=== PATIENT | female | born 1955 | race Hispanic/Latino ===

== ENCOUNTER 2019-01-20 18:21 | Emergency (ER) | payer MEDICARE, SELFPAY ==
[~2019-01-20 18:21] MED LIST: ATOR20TA65 PO; LEVO500T2 PO; LEVO50TA11 PO; METO50TA18 PO; POLY119P2 PO; SERT50TA PO
[2019-01-20 18:52] LABS: BILIRUBIN,URINE Negative (NEGATIVE); COLOR,URINE Yellow (YELLOW); GLUCOSE, URINE (UA) Negative (NEGATIVE); KETONES,URINE Negative (NEGATIVE); LEUKOCYTE ESTERASE ,URINE Moderate (NEGATIVE); NITRATE,URINE Positive (NEGATIVE); OCCULT BLOOD,URINE Small (NEGATIVE); PROTEIN,URINE Negative (NEGATIVE); UROBILINOGEN,URINE 0.2 mg/dL (0.2-1.0)
[2019-01-20 18:56] LABS: APPEARANCE,URINE SLIGHTLY CLOUDY (CLEAR)
[2019-01-20] MEDS ORDERED: ONDANSETRON HCL 4 MG/2 ML VIAL ONE (18:57)
[2019-01-20] MEDS ORDERED: SODIUM CHLORIDE 0.9% 1000ML 1,000 ML IV ONE (18:57)
[2019-01-20 19:00] LABS: BASOPHILS % (AUTO) 0.6 % (0.0-5.0); EOSINOPHILS % (AUTO) 1.8 % (0.0-8.0); HEMATOCRIT 39.1 % (36-48); LYMPHOCYTES % (AUTO) 19.1 % (21.0-51.0); MEAN CORPUSCULAR HEMOGLOBIN 30.4 pg (27.0-33.0); MEAN CORPUSCULAR HGB CONC 34.5 g/dL (32.0-36.0); MEAN CORPUSCULAR VOLUME 88.1 fL (79-99); MONOCYTES % (AUTO) 6.9 % (3.0-13.0); NEUTROPHILS % (AUTO) 71.6 % (40.0-77.0); PLATELET COUNT (AUTO) 287 K/uL (130-400); RED BLOOD CELL COUNT(AUTO) 4.44 MIL/uL (4.00-5.50); RED CELL DISTRIBUTION WIDTH 14.3 % (11.0-15.5); WHITE BLOOD COUNT (AUTO) 7.5 K/uL (4.8-10.8)
[2019-01-20 19:11] LABS: BACTERIA,URINE Moderate /HPF (None Seen)
[2019-01-20 19:12] LABS: CREATININE 0.9 mg/dL (0.5-1.5); POTASSIUM 3.4 mmol/L (3.5-5.1)
[2019-01-20 19:12] LABS: SQUAMOUS EPITHELIAL CELL,UR Rare /HPF (0-2)
[2019-01-20 19:17] LABS: ALBUMIN 3.9 g/dL (3.5-5.0); BILIRUBIN,DIRECT 0.1 mg/dL (0.0-0.3); BILIRUBIN,TOTAL 0.4 mg/dL (0.2-1.0); TOTAL PROTEIN, SERUM 7.9 g/dL (6.0-8.3)
[2019-01-20 19:19] LABS: MUCUS,URINE Few LPF (None Seen)
[2019-01-20] MEDS ORDERED: IOHEXOL-350 75 ML VIAL IV ONE (19:27)
== END 2019-01-20 20:52 | disposition home or self-care (01) ==
LOC: EDH 18:21
DX: A09 Infectious gastroenteritis and colitis, unspecified (principal); E86.9 Volume depletion, unspecified; R10.13 Epigastric pain; I10 Essential (primary) hypertension; E78.00 Pure hypercholesterolemia, unspecified; E07.9 Disorder of thyroid, unspecified; Z90.710 Acquired absence of both cervix and uterus; Z98.51 Tubal ligation status
CPT/HCPCS: 36415; 74177; 80048; 80076; 81001; 83690; 85025; 96361; 96374; 99285; J2405; J7030; Q9967

== ENCOUNTER 2022-12-17 07:21 | Day surgery (SDC) | payer MEDICARE ==
[2022-12-13 12:03] LABS: APPEARANCE,URINE CLEAR (CLEAR); BILIRUBIN,URINE NEGATIVE (NEGATIVE); COLOR,URINE LIGHT-YELLOW (YELLOW); GLUCOSE, URINE (UA) NEGATIVE (NEGATIVE); KETONES,URINE NEGATIVE (NEGATIVE); LEUKOCYTE ESTERASE ,URINE NEGATIVE Leu/uL (NEGATIVE); NITRATE,URINE NEGATIVE (NEGATIVE); OCCULT BLOOD,URINE NEGATIVE (NEGATIVE); PH,URINE 5.5 (5.0-8.0); PROTEIN,URINE NEGATIVE (NEGATIVE); UROBILINOGEN,URINE 0.2 mg/dL (0.2-1.0)
[2022-12-13 12:15] LABS: BASOPHILS % (AUTO) 0.9 % (0.0-5.0); EOSINOPHILS % (AUTO) 1.5 % (0.0-8.0); HEMATOCRIT 40.2 % (36-48); LYMPHOCYTES % (AUTO) 27.2 % (21.0-51.0); MEAN CORPUSCULAR HEMOGLOBIN 29.1 pg (27.0-33.0); MEAN CORPUSCULAR HGB CONC 31.8 g/dL (32.0-36.0); MEAN CORPUSCULAR VOLUME 91.4 fL (79-99); NEUTROPHILS % (AUTO) 64.1 % (40.0-77.0); PLATELET COUNT (AUTO) 290 K/uL (130-400); RED CELL DISTRIBUTION WIDTH 13.4 % (11.0-15.5); WHITE BLOOD COUNT (AUTO) 6.6 K/uL (4.8-10.8)
[2022-12-13 12:25] LABS: CREATININE 0.8 mg/dL (0.5-1.5); POTASSIUM 4.7 mmol/L (3.5-5.1)
[2022-12-13 12:42] LABS: INR 0.94 (0.85-1.15); PROTHROMBIN TIME 10.3 SEC (9.6-11.6)
[2022-12-13 12:43] LABS: PARTIAL THROMBOPLASTIN TIME 29.5 SEC (26.3-35.5)
[2022-12-16 09:07] VITALS: BP 170/70
[~2022-12-17] VITALS: Ht 157.5 cm; Wt 77.0 kg
[2022-12-17] VITALS (19 sets, daily range): BP systolic 134–188; BP diastolic 49–74
[~2022-12-17 07:21] MED LIST changes: -ATOR20TA65 PO; +GEMF600T89 PO; +LACTATED RINGERS 1000ML 1,000 ML IV SCH; -LEVO500T2 PO; +LEVO50CA4 PO; -LEVO50TA11 PO; +METO-391 PO; -METO50TA18 PO; -POLY119P2 PO; -SERT50TA PO; +VANCOMYCIN 1G/250ML KIT 250 ML IV SCH
[2022-12-17] MEDS ORDERED: LIDOCAINE PF 100MG/5ML (2%) SYRINGE 5ML ONE (08:52)
[2022-12-17] MEDS ORDERED: ONDANSETRON 4MG INJ ONE (08:53)
[2022-12-17] MEDS ORDERED: FENTANYL CITRATE PF 50 MCG/1 ML 2ML VIAL ONE (08:53)
[2022-12-17] MEDS ORDERED: MIDAZOLAM HCL 1 MG/ML 2ML VIAL ONE (08:53)
[2022-12-17] MEDS ORDERED: PROPOFOL 10 MG/ML 20ML VIAL IV ONE (08:53)
[2022-12-17] MEDS ORDERED: DEXAMETHASONE SOD PHOSPHATE 10MG/ML 1ML VIAL ONE (08:53)
[2022-12-17] MEDS ORDERED: VANCOMYCIN 1G VIAL IVPB ONE ×2 (09:05→09:15)
[2022-12-17] MEDS ORDERED: BUPIVACAINE/PF 0.5% 30ML VIAL ONE (09:15)
[2022-12-17] MEDS ORDERED: GLYCOPYRROLATE 1 MG/5 ML SYRINGE ONE (09:23)
[2022-12-17] MEDS ORDERED: BUPIVACAINE/EPI/PF 0.5% 30ML VIAL IJ ONE (09:40)
== END 2022-12-17 12:30 | disposition home or self-care (01) ==
LOC: DAH 07:21
PROVIDERS: ATTEND Surgery
DX: L72.0 Epidermal cyst (principal); I10 Essential (primary) hypertension; F41.9 Anxiety disorder, unspecified; E78.00 Pure hypercholesterolemia, unspecified; E66.01 Morbid (severe) obesity due to excess calories; Z20.822 Contact with and (suspected) exposure to COVID-19; Z79.899 Other long term (current) drug therapy; Z88.8 Allergy status to other drugs, medicaments and biological substances; Z68.31 Body mass index [BMI] 31.0-31.9, adult; Z90.710 Acquired absence of both cervix and uterus; Z90.49 Acquired absence of other specified parts of digestive tract; Z98.890 Other specified postprocedural states
CPT/HCPCS: 11403; 12031; 87426; 80048; 85025; 85610; 85730; 81003; 36415; 93005; A6260; J7030; A4452; J7120; J3370 ×2; J3010; J3490 ×3; J1100; J2001; J2250; J2704; J2405; A4215; A4223; A4222; A4221; A4663; A4600

== ENCOUNTER 2023-01-03 01:15 | Observation (INO) | payer MEDICARE ==
[~2023-01-03] VITALS: Ht 157.5 cm; Wt 80.1 kg
[~2023-01-03 01:15] MED LIST changes: -LACTATED RINGERS 1000ML 1,000 ML IV SCH; -VANCOMYCIN 1G/250ML KIT 250 ML IV SCH
[2023-01-03] MEDS ORDERED: PROMETHAZINE HCL 25 MG/ML 1ML AMPULE IM ONE (02:00)
[2023-01-03 02:20] LABS: BASOPHILS % (AUTO) 0.2 % (0.0-5.0); EOSINOPHILS % (AUTO) 0.6 % (0.0-8.0); HEMATOCRIT 36.1 % (36-48); LYMPHOCYTES % (AUTO) 14.9 % (21.0-51.0); MEAN CORPUSCULAR HEMOGLOBIN 29.2 pg (27.0-33.0); MEAN CORPUSCULAR HGB CONC 33.8 g/dL (32.0-36.0); MEAN CORPUSCULAR VOLUME 86.4 fL (79-99); MONOCYTES % (AUTO) 6.1 % (3.0-13.0); NEUTROPHILS % (AUTO) 77.8 % (40.0-77.0); PLATELET COUNT (AUTO) 343 K/uL (130-400); RED BLOOD CELL COUNT(AUTO) 4.18 MIL/uL (4.00-5.50); RED CELL DISTRIBUTION WIDTH 13.2 % (11.0-15.5); WHITE BLOOD COUNT (AUTO) 13.2 K/uL (4.8-10.8)
[2023-01-03 02:32] LABS: ALBUMIN 3.6 g/dL (3.5-5.0); MAGNESIUM 1.7 mg/dL (1.80-2.40); TOTAL PROTEIN, SERUM 8.1 g/dL (6.0-8.3)
[2023-01-03 02:34] LABS: APPEARANCE,URINE CLOUDY (CLEAR); BILIRUBIN,URINE NEGATIVE (NEGATIVE); COLOR,URINE LIGHT-YELLOW (YELLOW); GLUCOSE, URINE (UA) NEGATIVE (NEGATIVE); KETONES,URINE NEGATIVE (NEGATIVE); LEUKOCYTE ESTERASE ,URINE 500 Leu/uL (NEGATIVE); NITRATE,URINE NEGATIVE (NEGATIVE); OCCULT BLOOD,URINE MODERATE (NEGATIVE); PROTEIN,URINE 30 mg/dL (NEGATIVE); UROBILINOGEN,URINE 0.2 mg/dL (0.2-1.0)
[2023-01-03 02:42] LABS: MUCUS,URINE RARE LPF (None Seen); SQUAMOUS EPITHELIAL CELL,UR RARE /HPF (0-2); WBC,URINE 51-100 /HPF (0-1)
[2023-01-03] MEDS ORDERED: KETOROLAC 30MG VIAL (30MG/ML) ONE (02:42)
[2023-01-03] MEDS ORDERED: METOCLOPRAMIDE 10 MG/2 ML VIAL ONE (02:42)
[2023-01-03] MEDS ORDERED: FAMOTIDINE 20MG VIAL IV ONE ×2 (02:42→03:00)
[2023-01-03 02:54] LABS: BACTERIA,URINE Few /HPF (None Seen)
[2023-01-03] MEDS ORDERED: LEVOFLOXACIN 750 MG/D5W 150ML BAG IV ONE (03:00)
[2023-01-03] MEDS ORDERED: KETOROLAC 30MG VIAL (30MG/ML) IVP ONE (03:00)
[2023-01-03] MEDS ORDERED: LACTATED RINGERS 1000ML 1,000 ML IV SCH (03:00)
[2023-01-03] MEDS ORDERED: METOCLOPRAMIDE 10 MG/2 ML VIAL IVP ONE (03:00)
[2023-01-03] MEDS ORDERED: MORPHINE 4 MG SYG IVP ONE (03:00)
[2023-01-03] MEDS ORDERED: LEVOFLOXACIN 750 MG TABLET PO SCH (04:00)
[2023-01-03] MEDS ORDERED: ONDANSETRON 4MG INJ IV PRN (05:00)
[2023-01-03] MEDS ORDERED: ACETAMINOPHEN 325 MG TAB PO PRN ×2 (05:00)
[2023-01-03] MEDS ORDERED: NITROGLYCERIN 0.4 MG SL TAB SL PRN (05:00)
[2023-01-03] MEDS ORDERED: 0.9%NACL 1000ML 1,503 ML IV ONE (05:00)
[2023-01-03] MEDS ORDERED: MAGNESIUM 2GM PREMIX 50ML 50 ML IV ONE (05:30)
[2023-01-03 06:33] LABS: HEMOGLOBIN A1C 6.7 % (4.0-6.0)
[2023-01-03] MEDS: FAMOTIDINE 20MG TAB PO SCH ×2 (09:33→20:17)
[2023-01-03] MEDS: ENOXAPARIN SODIUM 40 MG/0.4 ML SYRINGE SQ SCH (09:34)
[2023-01-03] MEDS ORDERED: TRAM50TA4 PO (09:52)
[2023-01-03] MEDS ORDERED: METO50TA18 PO (09:52)
[2023-01-03] MEDS ORDERED: SERT-439 PO (09:52)
[2023-01-03 16:00] VITALS: BP 114/49
[2023-01-03] MEDS ORDERED: KETOROLAC 15MG/ML VIAL (15MG/ML) IV PRN (16:00)
[2023-01-03 17:00] VITALS: BP 132/61
[2023-01-03] MEDS ORDERED: MAGNESIUM 2GM PREMIX 50ML 50 ML IV SCH (17:00)
[2023-01-03] MEDS ORDERED: TRAMADOL HCL 50 MG TABLET PO PRN (17:00)
[2023-01-03] MEDS ORDERED: HYDRALAZINE 20MG/ML VIAL IV PRN (17:30)
[2023-01-03] MEDS: LACTATED RINGERS 1000ML 1,000 ML IV SCH (17:45)
[2023-01-03] MEDS: PHENAZOPYRIDINE HCL 200 MG TABLET PO SCH (17:45)
[2023-01-03 19:49] VITALS: BP 122/59
[2023-01-03] MEDS: LEVOFLOXACIN 500 MG/D5W 100 ML 100 ML IV SCH (20:17)
[2023-01-03] MEDS: GEMFIBROZIL 600 MG TABLET PO SCH (20:17)
[2023-01-03 23:08] VITALS: BP 131/51
[2023-01-04] MEDS: PHENAZOPYRIDINE HCL 200 MG TABLET PO SCH ×3 (02:00→16:45)
[2023-01-04 04:00] VITALS: BP 137/66
[2023-01-04 05:21] LABS: BASOPHILS % (AUTO) 0.5 % (0.0-5.0); EOSINOPHILS % (AUTO) 1.7 % (0.0-8.0); HEMATOCRIT 33.8 % (36-48); LYMPHOCYTES % (AUTO) 22.4 % (21.0-51.0); MEAN CORPUSCULAR HEMOGLOBIN 28.4 pg (27.0-33.0); MEAN CORPUSCULAR VOLUME 88.9 fL (79-99); MONOCYTES % (AUTO) 6.7 % (3.0-13.0); NEUTROPHILS % (AUTO) 68.2 % (40.0-77.0); PLATELET COUNT (AUTO) 269 K/uL (130-400); RED CELL DISTRIBUTION WIDTH 13.3 % (11.0-15.5); WHITE BLOOD COUNT (AUTO) 6.6 K/uL (4.8-10.8)
[2023-01-04] MEDS: LEVOTHYROXINE 50 MCG TABLET PO SCH (05:43)
[2023-01-04 05:54] LABS: ALBUMIN 2.7 g/dL (3.5-5.0); CREATININE 0.8 mg/dL (0.5-1.5); MAGNESIUM 1.8 mg/dL (1.80-2.40); POTASSIUM 3.8 mmol/L (3.5-5.1); TOTAL PROTEIN, SERUM 6.5 g/dL (6.0-8.3)
[2023-01-04] MEDS ORDERED: NON-FORMULARY MEDICATION 1 EACH (Levothyroxine Sodium (Levothyroxine) 50 MCG) PO SCH (07:30)
[2023-01-04 07:55] VITALS: BP 132/58
[2023-01-04] MEDS: ENOXAPARIN SODIUM 40 MG/0.4 ML SYRINGE SQ SCH (09:00)
[2023-01-04] MEDS: FAMOTIDINE 20MG TAB PO SCH ×2 (09:34→21:33)
[2023-01-04] MEDS: SERTRALINE HCL 50 MG TABLET PO SCH (09:34)
[2023-01-04] MEDS: GEMFIBROZIL 600 MG TABLET PO SCH ×2 (09:34→21:33)
[2023-01-04 12:00] VITALS: BP 148/72
[2023-01-04 16:00] VITALS: BP 139/70
[2023-01-04] MEDS: LACTATED RINGERS 1000ML 1,000 ML IV SCH (16:45)
[2023-01-04 19:49] VITALS: BP 146/66
[2023-01-04] MEDS: LEVOFLOXACIN 500 MG/D5W 100 ML 100 ML IV SCH (21:33)
[2023-01-04 23:00] VITALS: BP 147/62
[2023-01-05] MEDS: PHENAZOPYRIDINE HCL 200 MG TABLET PO SCH ×2 (00:42→08:25)
[2023-01-05] MEDS: LEVOTHYROXINE 50 MCG TABLET PO SCH (05:09)
[2023-01-05 05:42] LABS: BASOPHILS % (AUTO) 0.5 % (0.0-5.0); EOSINOPHILS % (AUTO) 2.8 % (0.0-8.0); HEMATOCRIT 34.8 % (36-48); LYMPHOCYTES % (AUTO) 26.2 % (21.0-51.0); MEAN CORPUSCULAR HEMOGLOBIN 29.3 pg (27.0-33.0); MEAN CORPUSCULAR HGB CONC 32.5 g/dL (32.0-36.0); MEAN CORPUSCULAR VOLUME 90.2 fL (79-99); MONOCYTES % (AUTO) 7.7 % (3.0-13.0); NEUTROPHILS % (AUTO) 62.3 % (40.0-77.0); PLATELET COUNT (AUTO) 302 K/uL (130-400); RED BLOOD CELL COUNT(AUTO) 3.86 MIL/uL (4.00-5.50); RED CELL DISTRIBUTION WIDTH 13.2 % (11.0-15.5); WHITE BLOOD COUNT (AUTO) 6.1 K/uL (4.8-10.8)
[2023-01-05 05:58] LABS: CREATININE 0.8 mg/dL (0.5-1.5); PHOSPHORUS 3.1 mg/dL (2.5-4.9); POTASSIUM 4.4 mmol/L (3.5-5.1)
[2023-01-05 07:27] VITALS: BP 124/71
[2023-01-05] MEDS: FAMOTIDINE 20MG TAB PO SCH (08:25)
[2023-01-05] MEDS: SERTRALINE HCL 50 MG TABLET PO SCH (08:25)
[2023-01-05] MEDS: GEMFIBROZIL 600 MG TABLET PO SCH (08:27)
[2023-01-05] MEDS: ENOXAPARIN SODIUM 40 MG/0.4 ML SYRINGE SQ SCH (08:28)
[2023-01-05 12:00] VITALS: BP 158/78
== END 2023-01-05 12:36 | disposition home or self-care (01) ==
LOC: EDH 01:15 → EDHIP 04:58 → INTOOBSV 04:58 → 3BH 13:55
PROVIDERS: ADMIT Internal Medicine; ATTEND Internal Medicine
DX: A41.9 Sepsis, unspecified organism (principal); R65.21 Severe sepsis with septic shock; N39.0 Urinary tract infection, site not specified; E83.42 Hypomagnesemia; I10 Essential (primary) hypertension; E03.9 Hypothyroidism, unspecified; E78.5 Hyperlipidemia, unspecified; F32.A Depression, unspecified; E78.00 Pure hypercholesterolemia, unspecified; B96.89 Other specified bacterial agents as the cause of diseases classified elsewhere; D72.829 Elevated white blood cell count, unspecified; N13.30 Unspecified hydronephrosis; N13.4 Hydroureter; K80.20 Calculus of gallbladder without cholecystitis without obstruction; Q33.3 Agenesis of lung; Z90.710 Acquired absence of both cervix and uterus; Z79.899 Other long term (current) drug therapy
CPT/HCPCS: 99285; 96361 ×3; 74176; 96365; 96375; 71045; 96367; 96366 ×2; 96376; 83036; 84443; 83735 ×3; 84484; 80053 ×2; 85025 ×3; 87040 ×2; 87077; 87088; 87186; 81001; 36415 ×3; 93005; 96372; 84100; 80048; 83605 ×4; J3475 ×2; J3490; J1956 ×2; J2550; J2270; J1885 ×2; J1650; J2765; J7120; G0378

== ENCOUNTER 2023-03-04 10:05 | Observation (INO) | payer MEDICARE ==
[~2023-03-04] VITALS: Ht 157.5 cm; Wt 77.4 kg
[~2023-03-04 10:05] MED LIST changes: +METO50TA18 PO; +SERT-439 PO; +TRAM50TA4 PO
[2023-03-04] MEDS ORDERED: ALBUTEROL 0.083% 2.5 MG/3 ML INH IH ONE (11:00)
[2023-03-04] MEDS ORDERED: IPRATROPIUM/ALBUTEROL SULFATE 3 ML SOLUTION IH ONE (11:00)
[2023-03-04] MEDS ORDERED: GUAIFENESIN 600 MG TABLET.ER PO ONE (11:00)
[2023-03-04 11:04] VITALS: PULSE 68; RESP 19
[2023-03-04 11:12] LABS: BASOPHILS # (AUTO) 0.05 K/uL (0.00-0.20); BASOPHILS % (AUTO) 0.6 % (0.0-5.0); EOSINOPHILS # (AUTO) 0.06 K/uL (0.00-0.70); EOSINOPHILS % (AUTO) 0.7 % (0.0-8.0); HEMATOCRIT 35.7 % (36-48); IMMATURE GRANULOCYTE ABSOLUTE 0.04 K/uL (0-1); LYMPHOCYTES # (AUTO) 0.9 K/uL (1.0-4.8); LYMPHOCYTES % (AUTO) 9.7 % (21.0-51.0); MEAN CORPUSCULAR HEMOGLOBIN 33.2 pg (27.0-33.0); MEAN CORPUSCULAR HGB CONC 36.7 g/dL (32.0-36.0); MEAN CORPUSCULAR VOLUME 90.4 fL (79-99); MONOCYTES # (AUTO) 0.6 K/uL (0.1-1.0); MONOCYTES % (AUTO) 6.6 % (3.0-13.0); NEUTROPHILS # (AUTO) 7.2 K/uL (1.8-7.7); NEUTROPHILS % (AUTO) 81.9 % (40.0-77.0); PLATELET COUNT (AUTO) 299 K/uL (130-400); RED BLOOD CELL COUNT(AUTO) 3.95 MIL/uL (4.00-5.50); RED CELL DISTRIBUTION WIDTH 15.2 % (11.0-15.5); WHITE BLOOD COUNT (AUTO) 8.7 K/uL (4.8-10.8)
[2023-03-04 11:25] LABS: ALBUMIN 3.8 g/dL (3.5-5.0); BILIRUBIN,TOTAL 0.5 mg/dL (0.2-1.0); CREATININE 0.9 mg/dL (0.5-1.5); TOTAL PROTEIN, SERUM 8.5 g/dL (6.0-8.3)
[2023-03-04 11:46] LABS: INFLUENZA TYPE A Negative For Type A (NEGATIVE); INFLUENZA TYPE B Negative For Type B (NEGATIVE)
[2023-03-04 12:29] LABS: SARS-CoV-2, RNA, NAAT POSITIVE SARS CoV-2 (NEGATIVE)
[2023-03-04] MEDS ORDERED: GUAIFENESIN-DM 200/20 MG 10 ML PO PRN (15:00)
[2023-03-04] MEDS ORDERED: ALBUTEROL 0.083% 2.5 MG/3 ML INH IH PRN (15:00)
[2023-03-04] MEDS ORDERED: 0.9%NACL 1000ML 1,000 ML IV ONE (15:00)
[2023-03-04] MEDS ORDERED: LEVOFLOXACIN 500 MG/D5W 100 ML 100 ML IV ONE (15:10)
[2023-03-04 15:48] LABS: HEMOGLOBIN A1C 6.8 % (4.0-6.0)
[2023-03-04 16:14] LABS: CRP QUANTITATIVE 56.2 mg/L (0.00-9.0); THYROID STIMULATING HORMONE 2.81 uIU/mL (0.36-3.74)
[2023-03-04 17:45] VITALS: BP 153/73; PULSE 84; RESP 18
[2023-03-04 20:00] VITALS: O2SAT 96
[2023-03-04 20:05] VITALS: BP 136/69; PULSE 86; RESP 20
[2023-03-04 20:07] LABS: APPEARANCE,URINE CLEAR (CLEAR); BILIRUBIN,URINE NEGATIVE (NEGATIVE); COLOR,URINE LIGHT-YELLOW (YELLOW); GLUCOSE, URINE (UA) NEGATIVE (NEGATIVE); KETONES,URINE NEGATIVE (NEGATIVE); LEUKOCYTE ESTERASE ,URINE NEGATIVE Leu/uL (NEGATIVE); NITRATE,URINE NEGATIVE (NEGATIVE); PROTEIN,URINE NEGATIVE (NEGATIVE)
[2023-03-04 20:14] LABS: ADD UA MICROSCOPIC YES
[2023-03-04 20:23] LABS: BACTERIA,URINE RARE /HPF (None Seen); MUCUS,URINE RARE LPF (None Seen); WBC,URINE 0-1 /HPF (0-1)
[2023-03-04 23:36] VITALS: BP 131/66; PULSE 76; RESP 18
[2023-03-05] VITALS (9 sets, daily range): BP systolic 148–158; BP diastolic 63–74; PULSE 62–85; RESP 16–20; O2SAT 93–95
[2023-03-05 06:54] LABS: BASOPHILS # (AUTO) 0.03 K/uL (0.00-0.20); BASOPHILS % (AUTO) 0.4 % (0.0-5.0); EOSINOPHILS # (AUTO) 0.08 K/uL (0.00-0.70); EOSINOPHILS % (AUTO) 1.1 % (0.0-8.0); HEMATOCRIT 34.9 % (36-48); IMMATURE GRANULOCYTE ABSOLUTE 0.02 K/uL (0-1); LYMPHOCYTES # (AUTO) 1.1 K/uL (1.0-4.8); LYMPHOCYTES % (AUTO) 15.2 % (21.0-51.0); MEAN CORPUSCULAR HEMOGLOBIN 30.1 pg (27.0-33.0); MEAN CORPUSCULAR VOLUME 91.4 fL (79-99); MONOCYTES # (AUTO) 0.7 K/uL (0.1-1.0); NEUTROPHILS # (AUTO) 5.2 K/uL (1.8-7.7); PLATELET COUNT (AUTO) 237 K/uL (130-400); RED BLOOD CELL COUNT(AUTO) 3.82 MIL/uL (4.00-5.50); RED CELL DISTRIBUTION WIDTH 14.1 % (11.0-15.5); WHITE BLOOD COUNT (AUTO) 7.1 K/uL (4.8-10.8)
[2023-03-05 07:21] LABS: CREATININE 0.8 mg/dL (0.5-1.5); CRP QUANTITATIVE 59.5 mg/L (0.00-9.0); POTASSIUM 4.7 mmol/L (3.5-5.1)
[2023-03-05] MEDS ORDERED: GUAIFENESIN-CODEINE 5 ML SYRUP PO PRN (08:30)
[2023-03-05] MEDS ORDERED: DEXAMETHASONE 4 MG TAB PO SCH (09:00)
[2023-03-05] MEDS: METOPROLOL SUCCINATE 50 MG TAB.SR.24H PO SCH (10:07)
[2023-03-05] MEDS: SERTRALINE HCL 50 MG TABLET PO SCH (10:08)
[2023-03-05] MEDS: GEMFIBROZIL 600 MG TABLET PO SCH ×2 (10:08→22:07)
[2023-03-05] MEDS ORDERED: PHARMACY COMMUNICATION MISC SCH (10:30)
[2023-03-05] MEDS ORDERED: GUAIFENESIN-DM 200/20 MG 10 ML PO PRN (12:30)
[2023-03-05] MEDS ORDERED: LEVOFLOXACIN 250 MG/D5W 50ML 50 ML IVPB SCH (15:00)
[2023-03-05] MEDS: FAMOTIDINE 20MG TAB PO SCH (22:07)
[2023-03-06 04:00] VITALS: BP 145/68; PULSE 62; RESP 18
[2023-03-06 05:11] LABS: HEMATOCRIT 33.2 % (36-48); MEAN CORPUSCULAR HEMOGLOBIN 31.1 pg (27.0-33.0); MEAN CORPUSCULAR HGB CONC 34.6 g/dL (32.0-36.0); MEAN CORPUSCULAR VOLUME 89.7 fL (79-99); RED BLOOD CELL COUNT(AUTO) 3.7 MIL/uL (4.00-5.50); RED CELL DISTRIBUTION WIDTH 14.1 % (11.0-15.5); WHITE BLOOD COUNT (AUTO) 5.3 K/uL (4.8-10.8)
[2023-03-06 05:32] LABS: ALBUMIN 3.2 g/dL (3.5-5.0); BILIRUBIN,TOTAL 0.3 mg/dL (0.2-1.0); CREATININE 0.6 mg/dL (0.5-1.5); MAGNESIUM 2.1 mg/dL (1.80-2.40); TOTAL PROTEIN, SERUM 7.6 g/dL (6.0-8.3)
[2023-03-06 06:34] VITALS: PULSE 68; RESP 16; O2SAT 96
[2023-03-06 07:34] VITALS: BP 128/70; PULSE 59; RESP 18
[2023-03-06 07:50] VITALS: O2SAT 97
[2023-03-06] MEDS ORDERED: ENOXAPARIN SODIUM 30 MG/0.3 ML SQ SCH (09:00)
[2023-03-06 09:28] VITALS: PULSE 64; PULSE 85; RESP 16; RESP 20; O2SAT 95; O2SAT 96
[2023-03-06] MEDS ORDERED: NIRM1TAB PO (09:57)
[2023-03-06] MEDS: FAMOTIDINE 20MG TAB PO SCH (10:15)
[2023-03-06] MEDS: METOPROLOL SUCCINATE 50 MG TAB.SR.24H PO SCH (10:15)
[2023-03-06] MEDS: SERTRALINE HCL 50 MG TABLET PO SCH (10:15)
[2023-03-06] MEDS: GEMFIBROZIL 600 MG TABLET PO SCH (10:15)
== END 2023-03-06 12:20 | disposition home or self-care (01) ==
LOC: EDH 10:05 → INTOOBSV 14:57 → EDHIP 14:57 → 3AH 17:45
PROVIDERS: ADMIT Internal Medicine; ATTEND Internal Medicine
DX: U07.1 COVID-19 (principal); J12.82 Pneumonia due to coronavirus disease 2019; I10 Essential (primary) hypertension; E03.9 Hypothyroidism, unspecified; E66.9 Obesity, unspecified; E78.00 Pure hypercholesterolemia, unspecified; F32.9 Major depressive disorder, single episode, unspecified; G47.33 Obstructive sleep apnea (adult) (pediatric); R42 Dizziness and giddiness; R53.1 Weakness; Z90.710 Acquired absence of both cervix and uterus; Z90.49 Acquired absence of other specified parts of digestive tract; Z98.51 Tubal ligation status; Z79.899 Other long term (current) drug therapy; Z98.890 Other specified postprocedural states; Z68.31 Body mass index [BMI] 31.0-31.9, adult
CPT/HCPCS: 96365; 99285; 83036; 84443; 82550; 83615; 84484; 80053 ×2; 85025 ×2; 85378; 87804 ×2; 86140 ×2; 81001; 36415 ×3; 87635; 71045 ×2; 70450; 93005; 94640; 94664; 84145; 96366; 80048; 82728; 97161; 96372; 83735; 85027; 94760 ×2; C9803; J1956 ×2; J7030; G0378 ×21; J8540; G8980; G8983; J1650

== ENCOUNTER → 2024-10-01 | Outpatient (CLI) | payer MEDICARE ==
[~2024-10-01] MED LIST changes: +ASPI-1005 PO; +ATOR40TA69 PO; +DOCU-116 PO; +IOHEXOL-350 75 ML VIAL IV ONE; -LEVO50CA4 PO; -METO-391 PO; +METO25 PO; -METO50TA18 PO; -TRAM50TA4 PO
--- NOTE | 2024-10-01 11:54 | HMCIMG ---
CT ANGIO NECK HISTORY: Disorder of artery COMPARISON: None TECHNIQUE: CT angiography of the neck was performed. The study was performed using angiographic technique with maximum intensity projection reconstruction images. Patient was given 75 cc of Omnipaque FINDINGS: There are degenerative changes of the cervical spine. Parapharyngeal fat planes are preserved bilaterally. The airway is patent. Normal enhancement of the thyroid gland is noted. Visualized portion of the lung apices are unremarkable. The common, internal and external carotid arteries are visualized. There is high-grade stenosis of 80-90% seen in the right internal carotid artery. No hemodynamically significant lesion is seen of left extracranial carotid artery system. Both vertebral arteries are seen with antegrade flow. IMPRESSION: CTA Neck 1. Atherosclerotic disease. There is high-grade stenosis of 80-90% seen in the right internal carotid artery. CT was performed with one or more following dose reduction techniques: automated exposure control, adjustment of the mA and kv according to patient's size, or use of a iterative reconstruction technique.
== END | disposition home or self-care (01) ==
LOC: RAH 10:12
PROVIDERS: ATTEND Internal Medicine
DX: I65.21 Occlusion and stenosis of right carotid artery (principal); I77.9 Disorder of arteries and arterioles, unspecified; M47.812 Spondylosis without myelopathy or radiculopathy, cervical region
CPT/HCPCS: 70498; Q9967